=== PATIENT | female | born 1965 | race African-American/Black ===

== ENCOUNTER 2016-05-17 18:03 | Emergency (ER) | payer SELFPAY ==
--- NOTE | 2016-05-17 18:18 | PDOC ---
History of Present Illness - General Chief Complaint: Injury Stated Complaint: LEFT 5TH FINGER INJURY Time Seen by Provider: 05/17/16 18:13 History Source: Patient Exam Limitations: No Limitations - History of Present Illness Initial Comments: 05/17/16 18:20 05/17/16 18:29 This is a 50 yo RHD F who presents to the ER with a complaint of left finger pain Pt states she was at home in her usual state of health She fell onto her left hand and her left finger No head trauma No LOC Pt was attempting to put her finger back in appropriate alignment (+) pain and swelling 05/17/16 18:30 PMH: HTN PSH: Meds: Norvasc ALL: NKDA Social: Denies alcohol, drugs or cigarettes GENERAL/CONSTITUTIONAL: No: fever, chills, weakness, loss of appetite. MUSCULOSKELETAL: Yes: left pinkie pain SKIN: No bruising GENERAL: The patient is in no acute distress. EXTREMITIES: PIP flexed, (+) swelling, (+) pain on palpation , no lacerations or bruising NEUROLOGICAL: Sensation in tact SKIN: Warm, Dry, normal turgor, no rashes or lesions noted. 05/17/16 18:36 05/18/16 17:47 Past History - Past Medical History Allergies/Adverse Reactions: Allergies Allergy/AdvReac Type Severity Reaction Status Date / Time No Known Allergies Allergy Verified 05/17/16 18:17 Home Medications: Ambulatory Orders Amlodipine Besylate [Norvasc -] 5 mg PO HS 05/17/16 Procedures - Joint Reduction Left Joint Reduction Site: left: Finger (5th digit) Pre-Procedure NV Exam: normal Conscious Sedation: No Finger Block: 5th digit Reduction Attempts: 1 Complications: No Post Joint Reduction Film: joint reduced Splint: Yes Immobilized: Yes Medical Decision Making - Medical Decision Making 05/17/16 18:36 Possible left 5th PIP dislocation Will do Xray Will give pain medications Will re eval 05/17/16 18:59 Pt finger reduced successfully Splint applied Pt asked to follow up with hand specialist within 1 week Keep finger splinted Clinical impression: middle phalynx dislocation *DC/Admit/Observation/Transfer Diagnosis at time of Disposition: Finger dislocation Qualifiers: Encounter type: initial encounter Qualified Code(s): S63.259A - Unspecified dislocation of unspecified finger, initial encounter - Discharge Dispostion Disposition: HOME Condition at time of disposition: Stable Admit: No Decision to Admit order Date/Time: 05/17/16 18:52 - Referrals Referrals: Anil Pires MD [Staff Physician] - Gautam Cobian MD [Staff Physician] - - Patient Instructions Printed Discharge Instructions: DI for Finger Dislocation, Reasons to Quit Smoking Additional Instructions: Ms Adams Thank you for coming in to the ER today Please wear fingers splint Please follow up with the Hand specialist in 1 week Return to the ER for any new concerns or complaints
[2016-05-17] MEDS ORDERED: OXYCODONE/APAP 5/325MG COMBO TABLET PO ONE (18:29)
[2016-05-17 18:32] VITALS: BP 124/80; PULSE 95; TEMP 98; BMI 25.3
[2016-05-17] MEDS ORDERED: OXYCODONE/APAP 5/325MG COMBO TABLET ONE (18:36)
[2016-05-17] MEDS ORDERED: LIDOCAINE HCL 1%, 10 MG/ML (20ML VIAL) ONE (18:41)
== END 2016-05-17 19:13 | disposition home or self-care (01) ==
LOC: FER 18:03
PROC: 0RSXXZZ Reposition Left Finger Phalangeal Joint, External Approach (ICD-10-PCS; principal; 2016-05-17)
DX: S63.259A Unspecified dislocation of unspecified finger, initial encounter (principal); W18.39XA Other fall on same level, initial encounter; Y93.89 Activity, other specified; Y92.009 Unspecified place in unspecified non-institutional (private) residence as the place of occurrence of the external cause
CPT/HCPCS: 73140-TC-LT; 99281-25